=== PATIENT | female | born 1960 | race Caucasian/White ===

== ENCOUNTER 2017-09-22 13:10 | Emergency (ER) | payer MEDICAID ==
[2017-09-22 13:16] VITALS: RESP 20
--- NOTE | 2017-09-22 13:17 | EDPHY ---
H & P HPI/ROS: HPI CHIEF COMPLAINT: Shortness of breath, cough, wheezing HISTORY OF PRESENT ILLNESS: Patient is a 56-year-old female, she is homeless, she presents emergency room with 2 days of progressively worsening shortness of breath and cough and wheezing. Wheezing throughout. She presents emergency room stating that she short of breath. She denies tobacco use. Patient reports to me that she does not want a chest x-ray as she is "sick getting radiated " she is fine with breathing treatment this time. Past Medical History: CHF which she states she could hurt herself Past Surgical History: Denies recent surgery Social History: Vaporizes, denies daily tobacco. Denies drug use or alcohol. Homeless Family History: Noncontributory ROS REVIEW OF SYSTEMS: A comprehensive 10 point review of systems is otherwise negative aside from elements mentioned in the history of present illness. Exam Constitutional mild respiratory distress, triage nursing summary reviewed, vital signs reviewed, awake/alert. Vital signs noted at triage to be tachycardic and tachypneic Eyes normal conjunctivae and sclera, EOMI, PERRLA. HENT normal inspection, atraumatic, moist mucus membranes, no epistaxis, neck supple/ no meningismus, no raccoon eyes. Respiratory decreased breath sounds bilaterally, crackles at the left face, wheezing throughout lung [place] Cardiovascular rate normal, regular rhythm, no murmur, no edema, distal pulses normal. Gastrointestinal soft, non-tender, no rebound, no guarding, normal bowel sounds, no distension, no pulsatile mass. Genitourinary no CVA tenderness. Musculoskeletal no midline vertebral tenderness, full range of motion, no calf swelling, no tenderness of extremities, no meningismus, good pulses, neurovascularly intact. Skin pink, warm, & dry, no rash, skin atraumatic. Neurologic awake, alert and oriented x 3, AAOx3, moves all 4 extremities equally, motor intact, sensory intact, CN II-XII intact, normal cerebellar, normal vision, normal speech. Psychiatric normal mood/affect. Heme/Lymph/Immune no lymphadenopathy. Differential Diagnosis: Includes but is not limited to in a particular order, CHF, pneumonia, viral syndrome, bronchitis, RSV, influenza Medical Decision Making: Plan for this patient IV establishment IV fluid bolus, patient declined chest x-ray in the emergency room however I did recommend that she gets this as she short of breath most likely has pneumonia, will give DuoNeb breathing treatment, check influenza basic blood work and re-evaluate. Re-evaluation: 1333: Upon arrival to the emergency room patient declining chest x-ray. EKG interpretation by me on record in [employer] system. Impression sinus tach 110 I do not appreciate acute ischemic changes. 1512: Patient is declining a chest x-ray. I encouraged her to get this to further evaluate her shortness of breath and wheezing and cough. Rule out pneumonia. 1512:She did receive a DuoNeb breathing treatment. She is feeling better. She is requesting an antibiotic. I explained that I would like to do a chest rule pneumonia however she has declined. She would like an antibiotic for her shortness of breath and cough. Additionally I will prescribe her steroids prednisone 60 mg and albuterol inhaler. I will give her prescription for azithromycin. She understands by declining x-ray here in emergency room her workup is limited and can lead to a misdiagnosis. She would like to be discharged. She understands that she has not had a full evaluation for shortness of breath cough and wheezing. I did recommend I will give her these prescriptions and that if she gets worse she should return to the emergency room. She understands to return emergency room she develops worsening shortness of breath cough, chest pain, fever, vomiting or any questions or concerns. Source: Patient Constitutional: Initial Vital Signs Temperature (C) 36.9 C 09/22/17 13:10 Heart Rate 108 H 09/22/17 13:10 Respiratory Rate 20 09/22/17 13:10 Blood Pressure 181/109 H 09/22/17 13:10 O2 Sat (%) 95 09/22/17 13:10 O2 Delivery Mode Room Air O2 (L/minute) 2 Allergies/Adverse Reactions: sulfamethoxazole [From Bactrim] Allergy (Verified 09/22/17 13:16) trimethoprim [From Bactrim] Allergy (Verified 09/22/17 13:16) Home Medications: Medication Instructions Recorded AZITHROMYCIN [Z-PACK] 250 mg PO DAILY #6 tab 09/22/17 Albuterol [Proventil Inhaler HFA 1 - 2 puffs IH Q4H #1 mdi 09/22/17 (*)] Oxycontin 09/22/17 predniSONE 60 mg PO DAILY #15 tab 09/22/17 Medical Decision Making - Data Points Laboratory Results: Laboratory Results 09/22/17 13:45 09/22/17 13:45 09/22/17 09/22/17 09/22/17 13:45 13:45 13:45 WBC RBC Hgb Hct MCV MCH MCHC RDW Plt Count MPV Neut % (Auto) Lymph % (Auto) Bibb % (Auto) Eos % (Auto) Baso % (Auto) Nucleat RBC Rel Count Absolute Neuts (auto) Absolute Lymphs (auto) Absolute Monos (auto) Absolute Eos (auto) Absolute Basos (auto) Absolute Nucleated RBC Immature Gran % Immature Gran # PT 14.3 SEC SEC (12.0-15.0) INR 1.09 (0.83-1.16) APTT 35.4 SEC SEC (23.0-38.0) Sodium 133 mEq/L L mEq/L (135-145) Potassium 3.5 mEq/L mEq/L (3.5-5.2) Chloride 100 mEq/L mEq/L (97-110) Carbon Dioxide 20 mEq/l L mEq/l (22-31) Anion Gap 13 mEq/L mEq/L (8-16) BUN 12 mg/dL mg/dL (7-23) Creatinine 0.6 mg/dL mg/dL (0.6-1.0) Estimated GFR > 60 Glucose 99 mg/dL mg/dL (70-100) Calcium 9.2 mg/dL mg/dL (8.5-10.4) Magnesium 1.7 mg/dL mg/dL (1.6-2.3) Total Bilirubin 0.8 mg/dL mg/dL (0.1-1.4) Conjugated Bilirubin 0.3 mg/dL mg/dL (0.0-0.5) Unconjugated Bilirubin 0.5 mg/dL mg/dL (0.0-1.1) AST 22 IU/L IU/L (14-46) ALT 27 IU/L IU/L (9-52) Alkaline Phosphatase 98 IU/L IU/L (38-126) Creatine Kinase 222 IU/L H IU/L (0-156) CK-MB (CK-2) Fraction 1.73 ng/mL ng/mL (0.00-3.19) CK-MB (CK-2) % 0.8 % % (0.0-4.0) Creatine Kinase Interp NEGATIVE (NEGATIVE) Troponin I < 0.012 ng/mL ng/mL (0.000-0.034) NT-Pro-B Natriuret Pep 187 pg/mL H pg/mL (0-125) Total Protein 6.7 g/dL g/dL (6.3-8.2) Albumin 3.9 g/dL g/dL (3.5-5.0) Nasal Influenza A PCR NEGATIVE FOR FLU A (NEGATIVE) Nasal Influenza B PCR NEGATIVE FOR FLU B (NEGATIVE) 09/22/17 13:45 WBC 13.42 10^3/uL H 10^3/uL (3.80-9.50) RBC 4.55 10^6/uL 10^6/uL (4.18-5.33) Hgb 14.0 g/dL g/dL (12.6-16.3) Hct 39.8 % % (38.0-47.0) MCV 87.5 fL fL (81.5-99.8) MCH 30.8 pg pg (27.9-34.1) MCHC 35.2 g/dL g/dL (32.4-36.7) RDW 12.2 % % (11.5-15.2) Plt Count 211 10^3/uL 10^3/uL (150-400) MPV 9.6 fL fL (8.7-11.7) Neut % (Auto) 80.9 % H % (39.3-74.2) Lymph % (Auto) 10.9 % L % (15.0-45.0) Bibb % (Auto) 7.6 % % (4.5-13.0) Eos % (Auto) 0.1 % L % (0.6-7.6) Baso % (Auto) 0.1 % L % (0.3-1.7) Nucleat RBC Rel Count 0.0 % % (0.0-0.2) Absolute Neuts (auto) 10.85 10^3/uL H 10^3/uL (1.70-6.50) Absolute Lymphs (auto) 1.46 10^3/uL 10^3/uL (1.00-3.00) Absolute Monos (auto) 1.02 10^3/uL H 10^3/uL (0.30-0.80) Absolute Eos (auto) 0.01 10^3/uL L 10^3/uL (0.03-0.40) Absolute Basos (auto) 0.02 10^3/uL 10^3/uL (0.02-0.10) Absolute Nucleated RBC 0.00 10^3/uL 10^3/uL (0-0.01) Immature Gran % 0.4 % % (0.0-1.1) Immature Gran # 0.06 10^3/uL 10^3/uL (0.00-0.10) PT INR APTT Sodium Potassium Chloride Carbon Dioxide Anion Gap BUN Creatinine Estimated GFR Glucose Calcium Magnesium Total Bilirubin Conjugated Bilirubin Unconjugated Bilirubin AST ALT Alkaline Phosphatase Creatine Kinase CK-MB (CK-2) Fraction CK-MB (CK-2) % Creatine Kinase Interp Troponin I NT-Pro-B Natriuret Pep Total Protein Albumin Nasal Influenza A PCR Nasal Influenza B PCR Medications Given: Discontinued Medications Albuterol/Ipratropium (Duoneb) 3 ml IH EDNOW ONE Stop: 09/22/17 13:32 Last Admin: 09/22/17 13:46 Dose: 3 ml Sodium Chloride (Ns) 1,000 mls @ 0 mls/hr IV EDNOW ONE; Wide Open PRN Reason: Protocol Stop: 09/22/17 13:31 Last Admin: 09/22/17 13:46 Dose: 1,000 mls Departure - Departure Disposition: Home, Routine, Self-Care Clinical Impression: Acute bronchitis Qualifiers: Bronchitis organism: unspecified organism Qualified Code(s): J20.9 - Acute bronchitis, unspecified Condition: Good Instructions: Acute Cough (ED) Additional Instructions: 1. Follow up with her primary care doctor. 2. Return emergency room immediately if he develops worsening symptoms includes chest pain, shortness of breath, fever, vomiting 3. Antibiotic as prescribed 4. Albuterol inhaler 2 puffs every 4 hr as needed for cough and wheezing. 5. Prednisone as prescribed. 6. Return if worse. Referrals: [facility] [Other] - As per Instructions Prescriptions: Albuterol [Proventil Inhaler HFA (*)] 1 - 2 puffs IH Q4H #1 mdi AZITHROMYCIN [Z-PACK] 250 mg PO DAILY #6 tab predniSONE 60 mg PO DAILY #15 tab
[2017-09-22] MEDS ORDERED: NS 1,000 ML IV ONE (13:30)
[2017-09-22] MEDS ORDERED: IPRATROPIUM/ALBUTEROL 3 ML DEYVIAL IH ONE (13:31)
--- NOTE | 2017-09-22 13:39 | CPEKG ---
Heart Rate: 110 RR Interval: 545 P-R Interval: 144 QRSD Interval: 80 QT Interval: 324 QTC Interval: 439 P [place]: 74 QRS [place]: 53 T Wave [place]: 57 EKG Severity - BORDERLINE ECG - EKG Impression: SINUS TACHYCARDIA EKG Impression: PROBABLE LEFT ATRIAL ABNORMALITY Electronically Signed By: River Whitfield 22-Sep-2017 20:06:33
[2017-09-22 14:13] LABS: PLATELET COUNT 211 10^3/uL (150-400)
[2017-09-22 14:36] LABS: CREATINE KINASE 222 IU/L (0-156)
[2017-09-22 14:38] LABS: INR 1.09 (0.83-1.16); PROTIME(PATIENT) 14.3 SEC (12.0-15.0)
[2017-09-22] MEDS ORDERED: AZITHROMYCIN 250 MG TAB PO ONE (15:10)
[2017-09-22 16:05] VITALS: BP 148/97; PULSE 110; TEMP 98.6; O2SAT 94
== END 2017-09-22 16:04 | disposition home or self-care (01) ==
DX: J20.9 Acute bronchitis, unspecified (principal); E86.9 Volume depletion, unspecified

== ENCOUNTER 2018-01-26 05:12 | Emergency (ER) | payer MEDICAID ==
[2018-01-26] MEDS ORDERED: KETOROLAC 15 MG/1 ML SDV IVP ONE (05:22)
[2018-01-26] MEDS ORDERED: NS 1,000 ML IV ONE (05:22)
--- NOTE | 2018-01-26 05:23 | EDPHY ---
H & P Time Seen by Provider: 01/26/18 05:23 HPI/ROS: HPI CHIEF COMPLAINT: Low back pain HISTORY OF PRESENT ILLNESS: Patient 57-year-old female, she has a history of L4 disc herniation, however does not take any daily medications additionally she reports to me she has a history of congestive heart failure that she "cured herself" patient presents emergency [facility] after she states that she bent over to take ibuprofen because she was having a headache. She bent over to the water fountain and immediately developed pain in her lumbar back that radiates across her low back. She now presents emergency room stating that the pain only becomes when she goes to stand up. She states when she is lying flat she feels okay. She denies any saddle anesthesia or radicular pain. Denies pain going down her legs. However she does state that when she tries to lift her legs off the bed they both feel very weak. Upon arrival to emergency room I did try to ambulate however she is unable to stand up straight due to her legs feeling weak. When she goes to be an erect position she gets low back pain. She denies chest pain, shortness of breath or fever. Past Medical History: Cerebral aneurysm with clips. She states she had a cerebral aneurysm that ruptured and she had a clip placed around 2011 she thinks at [facility]. L4 disc herniation and CHF Past Surgical History: Cerebral aneurysm with clip. Social History: Denies alcohol or drugs does smoke tobacco. Family History: Noncontributory ROS REVIEW OF SYSTEMS: A comprehensive 10 point review of systems is otherwise negative aside from elements mentioned in the history of present illness. Exam Constitutional nontoxic appearing triage nursing summary reviewed, vital signs reviewed, awake/alert. Eyes normal conjunctivae and sclera, EOMI, PERRLA. HENT normal inspection, atraumatic, moist mucus membranes, no epistaxis, neck supple/ no meningismus, no raccoon eyes. Respiratory clear to auscultation bilaterally, normal breath sounds, no respiratory distress, no wheezing. Cardiovascular rate normal, regular rhythm, no murmur, no edema, distal pulses normal. Gastrointestinal soft, non-tender, no rebound, no guarding, normal bowel sounds, no distension, no pulsatile mass. Genitourinary no CVA tenderness. Musculoskeletal no midline vertebral tenderness, full range of motion, no calf swelling, no tenderness of extremities, no meningismus, good pulses, neurovascularly intact. Skin pink, warm, & dry, no rash, skin atraumatic. Neurologic awake, alert and oriented x 3, AAOx3, moves all 4 extremities equally, motor intact, sensory intact, CN II-XII intact, normal cerebellar, normal vision, normal speech. When I go to ambulate this patient or have her stand up she feels like her legs are very weak. When I lay her flat on the bed and have her try to lift her legs up off the bed she describes as feeling very heavy and weak. Psychiatric normal mood/affect. Heme/Lymph/Immune no lymphadenopathy. Differential Diagnosis: Includes but is not limited to in a particular order disc herniation, lumbar radiculopathy, annular tear, cord injury, compression fracture Medical Decision Making: Plan for this patient will start off with x-ray of her low back will place an IV sure received Toradol for pain control check basic blood work. Additionally will need to talk to [facility] to get records about her cerebral clip to see if it is MRI compatible. I suspected is given that she states has been placed in 2011 she also states to me that she has had an MRI of her back before but she is unsure if it was before the cerebral clip or afterwards. Plan will be for pain control at this time, x-ray. Will most likely need MRI her back given her complaint of low back pain and leg weakness. She does not have any saddle anesthesia and she does not have any urinary or bowel incontinence or retention. Re-evaluation: Lumbar spine x-ray shows degenerative disc disease especially at L4/L5. I do not appreciate acute compression fracture. 0620AM; patient is now ambulating to the bathroom with a steady gait. She is now requesting discharge. She has declined hospitalization and declined MRI of her back. I did review her x-ray does have disc disease significant L4-L5. I did discuss that we should further evaluate this for her. After extensive discussion with her given that she has ongoing back pain perceived her legs to be weak discussed about need for MRI. We are requesting medical records from [facility] about her clip if his MRI compliant. We have not received the records yet. Given that she is having ongoing pain and leg weakness I have ordered her IV Toradol and IV Ativan for spasms. She does have a little bit pressured speech and appears somewhat a little bit agitated may be from pain. She denies having any significant mental illness Given that she has ongoing back pain and leg weakness she will need to be admitted further evaluation of this. 0631AM: Spoke with hospitalist service Dr. Kimbrough Who agrees to admit. Will need to obtain Records from [facility] which we have requested. Patient is agreeable for further evaluation of her back pain and workup. Agreeable for admission. IV Toradol IV Ativan ordered. Source: Patient, EMS - Medical/Surgical History Hx Asthma: No Hx Chronic Respiratory Disease: No Hx Diabetes: No Hx Cardiac Disease: Yes Hx Renal Disease: No Hx Cirrhosis: No Hx Alcoholism: No Hx HIV/AIDS: No Hx Splenectomy or Spleen Trauma: No Other PMH: Heart failure 2011. - Social History Smoking Status: Never smoked Constitutional: Initial Vital Signs Temperature (C) 36.5 C 01/26/18 05:00 Heart Rate 77 01/26/18 05:00 Respiratory Rate 18 01/26/18 05:00 Blood Pressure 170/123 H 01/26/18 05:00 O2 Sat (%) 96 01/26/18 05:00 O2 Delivery Mode Room Air Allergies/Adverse Reactions: sulfamethoxazole [From Bactrim] Allergy (Verified 09/22/17 13:16) trimethoprim [From Bactrim] Allergy (Verified 09/22/17 13:16) Home Medications: Medication Instructions Recorded NK [No Known Home Meds] 01/26/18 Medical Decision Making - Data Points Laboratory Results: Laboratory Results 01/26/18 05:58 01/26/18 01/26/18 05:58 05:58 WBC 8.12 10^3/uL 10^3/uL (3.80-9.50) RBC 5.19 10^6/uL 10^6/uL (4.18-5.33) Hgb 15.8 g/dL g/dL (12.6-16.3) Hct 46.4 % % (38.0-47.0) MCV 89.4 fL fL (81.5-99.8) MCH 30.4 pg pg (27.9-34.1) MCHC 34.1 g/dL g/dL (32.4-36.7) RDW 12.2 % % (11.5-15.2) Plt Count 209 10^3/uL 10^3/uL (150-400) MPV 9.6 fL fL (8.7-11.7) Neut % (Auto) 66.1 % % (39.3-74.2) Lymph % (Auto) 24.4 % % (15.0-45.0) [place] % (Auto) 7.5 % % (4.5-13.0) Eos % (Auto) 1.2 % % (0.6-7.6) Baso % (Auto) 0.4 % % (0.3-1.7) Nucleat RBC Rel Count 0.0 % % (0.0-0.2) Absolute Neuts (auto) 5.37 10^3/uL 10^3/uL (1.70-6.50) Absolute Lymphs (auto) 1.98 10^3/uL 10^3/uL (1.00-3.00) Absolute Monos (auto) 0.61 10^3/uL 10^3/uL (0.30-0.80) Absolute Eos (auto) 0.10 10^3/uL 10^3/uL (0.03-0.40) Absolute Basos (auto) 0.03 10^3/uL 10^3/uL (0.02-0.10) Absolute Nucleated RBC 0.00 10^3/uL 10^3/uL (0-0.01) Immature Gran % 0.4 % % (0.0-1.1) Immature Gran # 0.03 10^3/uL 10^3/uL (0.00-0.10) Sodium Pending Potassium Pending Chloride Pending Carbon Dioxide Pending Anion Gap Pending BUN Pending Creatinine Pending Estimated GFR Pending Glucose Pending Calcium Pending Departure - Departure Disposition: [facility] Inpatient Acute Clinical Impression: Back pain Qualifiers: Back pain location: low back pain Chronicity: acute Back pain laterality: unspecified Sciatica presence: without sciatica Qualified Code(s): M54.5 - Low back pain Condition: Fair Instructions: Low Back Strain (ED), Acute Low Back Pain (ED) Referrals: Patient,NotPresent [Unknown] - As per Instructions
[2018-01-26 06:25] LABS: PLATELET COUNT 209 10^3/uL (150-400)
[2018-01-26] MEDS ORDERED: LORazepam 2 MG/ML INJ IVP ONE (06:26)
[2018-01-26] MEDS ORDERED: ONDANSETRON 4 MG/2 ML VIAL IVP PRN (07:07)
[2018-01-26] MEDS ORDERED: LORazepam 0.5 MG TAB PO PRN (07:07)
[2018-01-26] MEDS ORDERED: ACETAMINOPHEN 325 MG TAB PO PRN (07:07)
[2018-01-26] MEDS ORDERED: METHOCARBAMOL 750 MG TAB PO PRN (07:09)
[2018-01-26 08:32] VITALS: BP 134/66
[2018-01-26] MEDS ORDERED: BACITRACIN OINTMENT 1 PACKET TP SCH (09:00)
--- NOTE | 2018-01-26 09:32 | GHP ---
[f rep st] HISTORY AND PHYSICAL DATE OF ADMISSION: 01/26/2018 SOURCE: Patient provides history, is a fair historian. She is a little bit tangential and slightly difficult to redirect. She is also very wary of healthcare professionals, [facility]ing [facility]. Case discussed with ED provider and EMR was reviewed. CHIEF COMPLAINT: "Lower extremity weakness," difficulties with mobility. HISTORY OF PRESENT ILLNESS: This is a 57-year-old female with a history of degenerative disk disease with L4 disk herniation, history of cerebral aneurysm status post clipping, and report of CHF in 201 2, who presents to the emergency department today via EMS from a detention with complaints of sudden on set of lower extremity weakness. Patient is adamant and denies that she had any back pain. She feel s that nobody was listening to her when she said she had mobility issues and she feels very frustrate d that nobody appears to be listening. Patient, however, appeared to have some unsteady gait. The p atient in the evening was going to the [employer] to take her ibuprofen for headache when she piedad t over and then developed this complaint of lower extremity weakness on both legs. She did not have a fall. She has a history of reported L4 disk herniation. She has chronic radiculopathy down her ri ght leg into her toe, but she reports recently she has had increased numbness and tingling in her dis carmela extremity. She denies any saddle anesthesia. She denies any fecal or urinary retention or incon tinence. Patient reported to the ED provider increased pain with standing. At time of my interview, patient was sitting up and moving around without any assistance in her bed. When I asked her to sta nd up and ambulate she did move cautiously with a slight waddle, but otherwise did not complain of an y significant pain, just rather complaining of her lower extremity weakness. Patient reports some subjective fevers, chills. She has had sick contacts at her detention location. REVIEW OF SYSTEMS: SKIN: Patient reports that she has had some fluid-filled lesions around her chin that have ruptured and scabbed. No other rashes or sores reported. ENT: Reports some sore and scr atchy throat with rhinorrhea which is new. EYES: Patient reports progressive vision changes which s he attributes to lack of her " "medicines" from juicing which she also reported cured her CHF. CV: Patient denies any chest pain, palpitations. No edema. RESPIRATORY: No shortness of breath or coug h. GI: Patient reports some nausea, vomiting. No hematemesis. No abdominal pain. No diarrhea. N o melena, hematochezia. : No dysuria or hematuria. MUSCULOSKELETAL: The patient is complaining of some left-sided neck pain and spasms. She is concerned regarding meningitis, but she has no probl ems with flexion, extension, or limited range of motion. Negative meningeal signs. NEURO: Patient denies any current headache. She had one earlier before she came in. Numbness and tingling as noted per HPI. No focal deficits or other bilateral lower extremity weakness. PSYCH: Patient is reporti ng some increased anxiety recently, generalized. No panic attacks. She denies any psychiatric or [facility] diagnoses and is adamant when asked about other medications. States she is not on any an tipsychotics. Remainder of review of systems negative except as above. ALLERGIES: To sulfa. HOME MEDICATIONS: Patient reports she takes Kratom supplement. Otherwise, no prescription medicatio ns. PAST MEDICAL HISTORY: Significant for degenerative disk disease, L4 disk herniation, cerebral aneury sm with clipping, and history of CHF in 2011, which patient reports again she cured with her juicing. PAST SURGICAL HISTORY: Patient only reports a cerebral aneurysm clip, no other surgeries or procedur es. FAMILY HISTORY: Mother had multiple medical issues. Was admitted to the hospital before she . The patient became increasingly agitated, stating that the doctors killed her mother, but she refused to answer any further questions regarding her mother's medical condition. She does not have any siblings. SOCIAL HISTORY: Patient smokes occasionally a tobacco stick. She also uses marijuana. She denies a ny illicit drug use. CODE STATUS: Will be full at this time. When asked regarding resuscitation efforts, the patient rep orts that she is unsure and so will leave patient as a full code. PHYSICAL EXAM: VITAL SIGNS: Blood pressure 170/123, heart rate 77, respiratory rate 18, O2 saturati on 96% on room air, temperature 36.5. GENERAL: No acute distress. Patient is sleeping quietly in t he bed when I enter the room. She wakes easily to name. She becomes increasingly agitated during th e conversation and is quite tangential and difficult to redirect occasionally. Her speech is slightl y pressured, but her thoughts are linked. SKIN: No apparent rashes or sores except on her lower chi n. Patient does have a small scab on the right lower chin and an area of slight flaking on the left chin. ENT: Patient with moist mucous membranes. Dentition intact. No oropharyngeal erythema or ex udates. NECK: Supple. Some tenderness along the left neck. No meningeal signs. No neck stiffness . CV: Regular rate and rhythm. No murmurs, rubs, or gallops appreciated. RESPIRATORY: Unlabored breathing. Lungs are clear to auscultation bilaterally. No wheezes, rales, or rhonchi. ABDOMEN: P ositive bowel sounds. Soft, nontender to palpation. No rebound, guarding, or masses appreciated. G U: No suprapubic tenderness to palpation. No Schumacher catheter in place. EXTREMITIES: No cyanosis, c lubbing, edema. 2+ pedal pulses bilaterally and symmetric. NEURO: Grossly nonfocal. No facial artie oping. Exam was slightly limited secondary to patient increasing agitation, but she was moving all h er extremities. She was sitting up independently. She is actually sitting up cross-legged in the be d. When she went to go stand up, she did appear to be a little unsteady on her legs proximally, but she was able to ambulate independently with a shuffling narrow gait. PSYCH: Patient was resting com fortably until awoken for interview. She became increasingly restless and with pressured speech and slightly agitated. She was tangential and slightly difficult to redirect. She expresses very negati ve view and paranoia that physicians are putting poison in the medicines. LABORATORY STUDIES: WBC 8.12, H and H is 15.8 and 46.4, MCV of 99.4, platelet count is 209, no bands . Sodium is 145, potassium 3.9, chloride 111, CO2 22, anion gap 12, BUN is 15, creatinine 0.6, GFR g reater than 60, glucose 85, calcium 9.5. Lumbar spine imaging report is pending. Reviewed myself. No acute fractures. Limited disk space na rrowing in 2-3, no acute fractures. ASSESSMENT AND PLAN: This is a 57-year-old female with history of L4 disk herniation and degenerativ e disk disease, who presents with intractable back pain and lower extremity weakness. 1. Back pain. At time of my interview, patient received a dose of Ativan and appeared to be comfort able. She absolutely denied any back pain ongoing. She was complaining of her lower extremity weakn ess and unsteady gait. I did have her ambulate. She did appear to have some difficulties getting to a standing position and some shuffling cautious gait. PT/OT has been consulted. She is reporting s ome increased radicular symptoms in the right leg. She has no paresthesias, urinary or bowel inconti nence, retention. MRI has been ordered, however, patient has a history of an aneurysm clip and we ar e awaiting records to verify compatibility for MRI before proceeding. At this point, patient is able to sit up independently. Her pain is controlled and she will be admitted for physical therapy evalu ation and treatment. She does appear to have some lower extremity weakness and some difficulty ambul ating independently. 2. Anxiety. The patient is status post Ativan. She remains a little bit anxious and increasingly a gitated during interview. Denies any history of psychiatric illness. No SI or HI at this time. 3. Fluid electrolyte nutrition. Diet as tolerated. Once patient has completed her MRI, electrolyte monitoring replacement if needed. No IV fluids at this time. 4. Prophylaxis. Sequential compression devices, holding anticoagulation. Anticipating short hospit al stay and encourage early ambulation. 5. Code status will be full at this time. Patient is unsure regarding if she wants to withhold any resuscitation so we will leave it as a full. 6. Disposition. Patient admitted to observation status to medical floor pending PT, OT, and MRIs [facility]. /[id number]/MODL
== END 2018-01-26 10:30 | disposition home or self-care (01) ==
LOC: EDUNIT# → UNDOADMOB 06:30
DX: M54.5 Low back pain (principal)
CPT/HCPCS: 96374; J1885; J2060; J2405

== ENCOUNTER 2018-12-24 18:20 | Emergency (ER) | payer MEDICAID ==
[2018-12-24] MEDS ORDERED: CYCLOBENZAPRINE 10 MG TAB PO ONE (18:32)
[2018-12-24] MEDS ORDERED: ACETAMINOPHEN 500 MG TAB PO ONE (18:32)
[2018-12-24] MEDS ORDERED: LIDOCAINE 4%/MENTHOL 1% PATCH TD ONE (18:32)
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
[2018-12-24] MEDS ORDERED: oxyCODONE IR 5 MG TAB PO ONE (19:48)
[2018-12-24 19:55] VITALS: BP 154/95
[2018-12-24] MEDS ORDERED: PATCH REMOVAL 1 EA PATCH TD SCH (21:00)
== END 2018-12-24 20:20 | disposition home or self-care (01) ==
LOC: EDUNIT#
DX: M51.36 Other intervertebral disc degeneration, lumbar region (principal); M47.816 Spondylosis without myelopathy or radiculopathy, lumbar region; M46.96 Unspecified inflammatory spondylopathy, lumbar region; I67.1 Cerebral aneurysm, nonruptured; I50.9 Heart failure, unspecified

== ENCOUNTER 2018-12-25 05:29 | Emergency (ER) | payer MEDICAID ==
[2018-12-25 05:36] VITALS: BP 145/88
[2018-12-25] MEDS ORDERED: KETOROLAC 15 MG/1 ML SDV IM ONE (05:53)
--- NOTE | 2018-12-25 05:55 | EDPHY ---
H & P Stated Complaint: weakness in back Time Seen by Provider: 12/25/18 05:33 HPI/ROS: HPI The patient presents with inability to walk which has been present for the last 1 day. The patient has a history of lumbar spine disease which she has dealt with for the last several years. She was seated and when she stood up yesterday she developed severe back pain which prevented her from walking. She tried to use massage to improve the pain, however this did not work. She came to the emergency department today, had lumbar spinal films which showed no acute disease and was discharged to the [facility]. [facility] now, refusing to leave, stating that she cannot walk, found by security guards crawled out on the floor. She is brought back for further evaluation. She has been seeing a primary care doctor here in [place]. She was told that her SI joint was inflamed. The doctor tried to do osteopathic manipulation but was unsuccessful. She has placed her on Flexeril for now which the patient is taking in addition to ibuprofen. She reports that the pain travels down her left leg to her knee and feels like sciatica and muscle spasm. REVIEW OF SYSTEMS 10 systems were reviewed and negative with the exception of the elements mentioned in the history of present illness. PMHx: Lumbar spinal disease with L4 disc herniation, history of aneurysm status post coiling procedure; admitted to the hospital in January of 2018 with similar presentation with plan for PT and OT evaluation. Patient left the hospital prior to her discharge and was found lying on the ground outside. Soc Hx: Homeless, currently residing at the alf for the last 8 days after working the [employer] and [place], [place], no IV drug use PHYSICAL General Appearance: Alert, no distress Eyes: Pupils equal and round no pallor or injection ENT, Mouth: Mucous membranes moist Respiratory: There are no retractions, lungs are clear to auscultation Cardiovascular: Regular rate and rhythm Gastrointestinal: Abdomen is soft and non-tender, no masses, bowel sounds normal Neurological: A&O, 5/5 strength in her lower extremities which is symmetric with poor effort, sensation is intact to light touch in her legs. Skin: Warm and dry, no rashes Musculoskeletal: Neck is supple non tender Extremities: symmetrical, full range of motion Psychiatric: Patient is oriented X 3, there is no agitation Source: Patient Exam Limitations: No limitations - Personal History Current Tetanus/Diphtheria Vaccine: Yes Current Tetanus Diphtheria and Acellular Pertussis (TDAP): Yes - Medical/Surgical History Hx Asthma: No Hx Chronic Respiratory Disease: No Hx Diabetes: No Hx Cardiac Disease: Yes Hx Renal Disease: No Hx Cirrhosis: No Hx Alcoholism: No Hx HIV/AIDS: No Hx Splenectomy or Spleen Trauma: No Other PMH: Heart failure 2012, HTN, brain clip. - Social History Smoking Status: Never smoked Constitutional: Initial Vital Signs Temperature (C) 36.7 C 12/25/18 05:33 Heart Rate 81 12/25/18 05:33 Respiratory Rate 18 12/25/18 05:33 Blood Pressure 145/88 H 12/25/18 05:33 O2 Sat (%) 95 12/25/18 05:33 O2 Delivery Mode Room Air Allergies/Adverse Reactions: sulfamethoxazole [From Bactrim] Allergy (Verified 12/24/18 18:26) trimethoprim [From Bactrim] Allergy (Verified 12/24/18 18:26) Home Medications: Medication Instructions Recorded Herbals/Supplements -Info Only 1 ea PO DAILY 01/26/18 Lidocaine [Lidoderm] 1 each TP DAILY #7 adh..patch 12/24/18 clonIDINE 12/24/18 Medical Decision Making Differential Diagnosis: 58-year-old homeless female with known lumbar spinal disc disease presents with sciatic type pain of her left leg and inability to walk after being discharged from the emergency department. Found lying on the ground of the waiting room. According to prior records, patient has had similar behavior before in the setting of what was thought to be due to secondary gain. I have examined the patient, she does not have any neurologic deficits though is poorly cooperative with the neuro exam. I have given her a Toradol injection. I reassessed her about 30 min after the injection and she had somehow moved from the gurney to a chair, though she said she could not walk. I do not think an MRI would be helpful in her case. I will keep her here for case management evaluation as they may be able to help her obtain a cane or a walker which she is currently requesting. - Data Points Medications Given: Discontinued Medications Ketorolac Tromethamine (Toradol) 30 mg IM EDNOW ONE Stop: 12/25/18 05:54 Last Admin: 12/25/18 06:00 Dose: 30 mg Departure - Departure Disposition: Home, Routine, Self-Care Clinical Impression: Lower back pain Qualifiers: Chronicity: chronic Back pain laterality: bilateral Sciatica presence: with sciatica Sciatica laterality: sciatica of left side Qualified Code(s): M54.42 - Lumbago with sciatica, left side Condition: Good Instructions: Low Back Strain (ED) Additional Instructions: Please follow-up with your primary care doctor. Please continue to take the medication your prescribed.
--- NOTE | 2018-12-25 20:06 | ASMTCMCOM ---
CM Note CM Note Notes: Pt was seen in the ED yesterday 12/24/18 at 6pm and d/c'd around 9pm. *Please see ED RN notes & Provider Report from that visit. Pt presented to the ED again around 5:30am this morning and was ready for discharge but was waiting in the ED for CM to provide pt w/ a walker. CM arrived and retrieved a walker from the basement garage and brought it to the ED but the pt had already exited the ED at this point and was sitting on the sidewalk outside the [facility] entrance. [facility] security and [employer] officers were on scene and speaking to the pt who continued to stay on the ground. CM was going to bring the walker out to the pt but then learned that Perry w/[facility] Security had already retrieved a four-point walker from the basement garage and offered it to the pt but the pt had refused it and started "scooting on the floor" out of the ED. *See ED RN Notes. Pt was eventually arrested by [employer] for criminal trespassing and transported to [facility] via [facility] due to pt stating she could not stand or ambulate (although per ED RN notes, pt was able stand earlier and ambulate earlier in the ED visit). Per chart review, it seems pt normally stays at the [facility] but was unable to discharge there last night due to not calling ahead or arriving by 7pm. The [facility] was not open last night. It is unclear whether pt is open with [facility], [facility], or any other community provider and CM did not have an opportunity to reach out and confirm throughout the remainder of the day. If pt returns to the ED, please notify CM (whether we are in office or not) to assist pt with outpatient followup, community resources, etc. Please read pt's past ED visits and ED RN notes for additional background info Pt has been seen at [facility] in the past, consider getting another ANDRES signed by the pt to obtain additional past medical history and information if needed. Date Signed: 12/25/2018 08:05 PM Electronically Signed By:Almaz Ortiz RN
== END 2018-12-25 10:29 | disposition home or self-care (01) ==
DX: M54.42 Lumbago with sciatica, left side (principal); Z59.0 Homelessness
CPT/HCPCS: J1885